=== PATIENT | female | born 1990 | race Caucasian/White ===

== ENCOUNTER 2016-11-29 18:42 | Emergency (ER) | payer MEDICAID ==
[2016-11-29 19:21] VITALS: BP 116/70
--- NOTE | 2016-11-29 19:44 | ERNOTE ---
Abdominal HPI - General Chief Complaint: Abdominal Pain Time Seen by Provider: 11/29/16 19:27 Source: patient Exam Limitations: no limitations - Immun/Allergies/Home Medications Immunizatons: IMMUNIZATION HX Immunizations Up to Date Yes History of Influenza Vaccine Yes Hx Pneumococcal Vaccination No Allergies/Adverse Reactions: Allergies No Known Allergies Allergy (Unverified 11/29/16 18:50) Home Medications: HOME MEDICATIONS HYDROcodone/ACETAMINOPHEN [[place] 5-325] 1 each PO Q4H PRN #5 tablet 11/29/16 [ Last Taken Unknown] #103/Iron Fumarate/FA [ Tablet] 1 each PO DAILY [Last Taken Unknown] - History of Present Illness Narrative: Patient was diagnosed with gallstones a couple of months ago. She is waiting to have surgery as she has little children and wouldn't be able to lift them after surgery. She has a total of three episodes the last one this afternoon, symptoms lasted about and hours and were resolving on arrival to the ER. She is visiting her parents and does not have her pain medication available and is wondering whether she could a a prescription for a few pain pills Review of Systems - Review of Systems Constitutional: Absent: recent illness, fever ENT: Absent: sore throat Respiratory: Absent: shortness of breath Cardiology: Absent: chest pain Gastrointestinal/Abdominal: Present: See HPI. Absent: nausea, vomiting, diarrhea Genitourinary: Present: no symptoms reported Neurological: Absent: headache - Patient's Past Medical History Patient History - Medical: Other - gallstones Patient History - Cardiac/Respiratory: No pertinent hx Patient History - Cancer: No Hx of Cancer Patient History - Surgical Procedures: Appendectomy, T & A Patient History - Other: None LMP (females 10-50): last week - Social History Living Situations: spouse Psych History: No pertinent hx Smoking Status: Never smoker Have you smoked in the past 12 months: No Do you dip or chew tobacco: No Alcohol Use: none Drug Use: none - Immunizations Immunizations Up to Date: Yes Hx Pneumococcal Vaccination: No History of Influenza Vaccine: Yes Physical Exam - Physical Exam General Appearance: Present: wd/wn, alert, no apparent distress Respiratory: Present: no respiratory distress, normal breath sounds, no accessory muscle use, lungs clear Cardiovascular/Chest: Present: regular rate, rhythm, no murmur Gastrointestinal/Abdominal: Present: normal bowel sounds, nontender, nondistended, soft Neurological Exam: Present: alert, oriented, normal mood/affect Skin Exam: Present: normal color, warm/dry ED Progress - Vital Signs Patient's Vital Signs:: I have reviewed the patient's vital signs. Vital Signs: Vital Signs 11/29/16 11/29/16 18:45 19:19 Temperature 36.6 C Pulse Rate 78 80 Respiratory 14 Rate Blood Pressure 127/70 116/70 O2 Sat by Pulse 99 98 Oximetry - Progress/Reassessment Chief Complaint: Abdominal Pain Departure - Departure Clinical Impression: Gallstone Qualifiers: Cholecystitis presence: without cholecystitis Biliary obstruction: without biliary obstruction Qualified Code(s): K80.20 - Calculus of gallbladder without cholecystitis without obstruction Disposition: Home self-care Condition: Good Instructions: Cholelithiasis, [id number] Additional Instructions: follow up with your doctor when you get back home Prescriptions: HYDROcodone/ACETAMINOPHEN [[place] 5-325] 1 each PO Q4H PRN #5 tablet PRN Reason: Pain
== END 2016-11-29 19:37 | disposition home or self-care (01) ==
LOC: ER 18:42
DX: K80.20 Calculus of gallbladder without cholecystitis without obstruction (principal)